=== PATIENT | female | born 1995 | race Caucasian/White ===

== ENCOUNTER 2017-12-29 22:10 | Emergency (ER) | payer BC, SELFPAY ==
[2017-12-29] MEDS ORDERED: Ibuprofen 800 MG TAB ONE (22:40)
[2017-12-29] MEDS ORDERED: AMOXicillin 250 MG CAP ONE (23:00)
== END 2017-12-29 23:05 | disposition home or self-care (01) ==
LOC: BURERS 22:10
DX: J02.9 Acute pharyngitis, unspecified (principal); J45.909 Unspecified asthma, uncomplicated
CPT/HCPCS: 87081; 87430; 99283

== ENCOUNTER 2019-10-05 21:09 | Emergency (ER) | payer SELFPAY ==
[2019-10-05] MEDS ORDERED: HYDROcodone/Acetaminophen 10/325 mg Tablet ONE (21:30)
[2019-10-05] MEDS ORDERED: AMOXicillin 250 MG CAP ONE (21:31)
[2019-10-05] MEDS ORDERED: Ibuprofen 800 MG TAB ONE (21:31)
== END 2019-10-05 21:36 | disposition home or self-care (01) ==
LOC: BURERS 21:09
DX: K91.840 Postprocedural hemorrhage of a digestive system organ or structure following a digestive system procedure (principal); K08.89 Other specified disorders of teeth and supporting structures
CPT/HCPCS: 99282

== ENCOUNTER 2021-01-22 19:24 | Emergency (ER) | payer SELFPAY ==
[2021-01-23 11:48] LABS: SARS-CoV-2 PCR by NAA Not Detected (NotDetected)
== END 2021-01-22 20:45 | disposition home or self-care (01) ==
LOC: BURERS 19:24
DX: J06.9 Acute upper respiratory infection, unspecified (principal); Z20.822 Contact with and (suspected) exposure to COVID-19
CPT/HCPCS: 87081; 87430; 87804; 99283; U0003; U0005